=== PATIENT | male | born 1965 | race Two or more races ===

== ENCOUNTER 2017-12-31 20:22 | Emergency (ER) | payer BC, OTHER ==
[~2017-12-31] VITALS: Ht 170.2 cm; Wt 93.0 kg
[2017-12-31] MEDS ORDERED: GENVOYA TABLET1 EACH PO (20:36)
--- NOTE | 2017-12-31 20:46 | Emergency Room Report ---
History of Present Illness General Chief Complaint: Male Urogenital Problems Source: Patient (Yaakov Lopez M.D.) Present Illness HPI 52-year-old male presenting with right inguinal hernia that has been getting bigger and hurting for the last 3 days. States that he has never been this pain before. His last bowel movement was today. He is passing gas. Denies any fever chills. No vomiting. (Yaakov Lopez M.D.) Allergies: Coded Allergies: No Known Allergies (Unverified , 12/31/17) Patient History Past Medical History: see triage record Past Surgical History: none Pertinent Family History: none Reviewed Nursing Documentation: PMH: Agreed; PSxH: Agreed (Yaakov Lopez M.D. ) Nursing Documentation-PMH Hx Gastrointestinal Problems: Yes - HERNIA (Yaakov Lopez M.D.) Review of Systems All Other Systems: negative except mentioned in HPI (Yaakov Lopez M.D.) Physical Exam Vital Signs Date Time Temp Pulse Resp B/P (MAP) Pulse Ox O2 Delivery O2 Flow Rate FiO2 12/31/17 20:27 98.8 90 18 129/78 94 Room Air 98.8 Sp02 EP Interpretation: reviewed, normal General Appearance: alert, GCS 15, non-toxic, moderate distress Head: normocephalic, atraumatic Eyes: bilateral eye normal inspection, bilateral eye PERRL, bilateral eye EOMI ENT: normal ENT inspection, normal pharynx, normal voice, moist mucus membranes Neck: normal inspection, full range of motion, supple Respiratory: normal inspection, lungs clear, normal breath sounds, no respiratory distress, no retraction, no wheezing, speaking full sentences, chest symmetrical Cardiovascular #1: normal inspection, regular rate, rhythm, no edema, normal capillary refill Cardiovascular #2: 2+ radial (R), 2+ radial (L) Gastrointestinal: normal inspection, non tender, soft, non-distended, no guarding Genitourinary: other - Right inguinal hernia that is nonreducible, there is no overlying discoloration, tender to palpation, but not tense Musculoskeletal: normal inspection, back normal, normal range of motion, non- tender Neurologic: normal inspection, alert, oriented x3, responsive, motor strength/ tone normal, sensory intact, normal gait, speech normal Psychiatric: normal inspection, judgement/insight normal, memory normal Skin: normal inspection, normal color, no rash, warm/dry, well hydrated, normal turgor (Yaakov Lopze M.D.) Medical Decision Making Diagnostic Impression: Primary Impression: Incarcerated right inguinal hernia ER Course 52-year-old male with right-sided inguinal hernia DDX: Incarcerated inguinal hernia, not strangulated, no signs of SBO he is passing gas and stool today Plan: Pain control, surgery consult ER course: Patient has remained stable during ED stay. Dr Nelson evaluated pt, able to reduce hernia only by 80% but not fully recommends admission ans possible surgery tomorrow Disposition: Patient is to be admitted [place] [facility] [place] will be ff patient Signed out to Dr Edmonds -52 yo M to be admitted for incarcerated hernia -pending labs and admission Please note that this Emergency Department Report was dictated using The [employer] Rogerscircuit breaker supervisor technology software, occasionally this can lead to erroneous entry secondary to interpretation by the dictation equipment (Yaakov Lopez M.D.) ER Course Patient signout to me. He is pending admission versus transfer. Patient presents with incarcerated hernia and seen by surgeon here. Surgeon recommend urgent surgery and admission. Patient is otherwise stable. I spoke with Dr. Sutton who accepted the patient for transfer to [place]. (ROGELIO EDMONDS M.D.) Last Vital Signs Date Time Temp Pulse Resp B/P (MAP) Pulse Ox O2 Delivery O2 Flow Rate FiO2 12/31/17 20:27 98.8 90 18 129/78 94 Room Air 98.8 (Yaakov Lopez M.D.) Disposition: XFER [facility] Condition: Stable Yaakov Lopez M.D. Dec 31, 2017 20:45 ROGELIO EDMONDS M.D. Dec 31, 2017 22:17
[2017-12-31 20:50] VITALS: BP 129/78
[2017-12-31] MEDS ORDERED: Morphine Sulfate 4mg/ml Inj IV ONE (21:00)
[2017-12-31 21:57] LABS: BASOPHILS % (AUTO) 0.9 % (0.0-2.0); EOSINOPHILS % (AUTO) 2.3 % (0.0-3.0); HEMATOCRIT 43.9 % (42.0-52.0); HEMOGLOBIN 14.4 G/DL (14.2-18.0); LYMPHOCYTES % (AUTO) 35.3 % (20.0-45.0); MEAN CORPUSCULAR VOLUME 91 FL (80-99); NEUTROPHILS % (AUTO) 51.5 % (45.0-75.0); PLATELET COUNT 218 K/UL (150-450); RED CELL DISTRIBUTION WIDTH 11.6 % (11.6-14.8); WHITE BLOOD COUNT 7.1 K/UL (4.8-10.8)
[2017-12-31 22:00] LABS: ANION GAP 8 mmol/L (5-15); BLOOD UREA NITROGEN 15 mg/dL (7-18); CALCIUM 8.6 MG/DL (8.5-10.1); CARBON DIOXIDE 28 MMOL/L (21-32); CHLORIDE 106 MMOL/L (98-107); POTASSIUM 3.8 MMOL/L (3.5-5.1); SODIUM 142 MMOL/L (136-145)
[2017-12-31 22:01] LABS: INR 0.9 (0.9-1.1)
[2017-12-31 22:05] LABS: ALANINE AMINOTRANSFERASE 26 U/L (12-78); ALBUMIN 3.6 G/DL (3.4-5.0); ALBUMIN/GLOBULIN RATIO 0.9 (1.0-2.7); ALKALINE PHOSPHATASE 78 U/L (46-116); ASPARTATE AMINO TRANSFERASE 18 U/L (15-37); BILIRUBIN,TOTAL 0.3 MG/DL (0.2-1.0)
[2017-12-31 22:49] LABS: APPEARANCE,URINE CLEAR; BILIRUBIN, URINE NEGATIVE (NEGATIVE); COLOR,URINE PALE YELLOW; GLUCOSE, URINE (UA) NEGATIVE (NEGATIVE); KETONES,URINE NEGATIVE (NEGATIVE); LEUKOCYTE ESTERASE ,URINE 1+ (NEGATIVE); NITRITE,URINE POSITIVE (NEGATIVE); PH,URINE 6 (4.5-8.0); PROTEIN,URINE 1+ (NEGATIVE); UROBILINOGEN,URINE NORMAL MG/DL (0.0-1.0)
--- NOTE | 2018-01-01 01:26 | Consultation ---
History of Present Illness General Date patient seen: Dec 31, 2017 Chief Complaint: Male Urogenital Problems Reason for Consultation: right inguinal hernia Present Illness HPI late entry for patient seen 12/31 in evening. called to see patient in ED for incarcerated right inguinal hernia. patient states 10 year history of right inguinal hernia. over the past few days worsening pain. went to pcp who recommend patient go to ED given symptoms. states hernia has become larger over past few days and more painful. no n/v/f/c. larger bulge in right groin. tender on palpation. no radiation. no obstructive symptoms. uncomfortable with movement and sitting up. 8/10 sharp pain. Allergies: Coded Allergies: No Known Allergies (Unverified , 12/31/17) Medication History Scheduled Elviteg/Rebekah/Emtric/Tenofo Ala (Genvoya Tablet), 1 EACH PO DAILY, (Reported) Patient History History Provided By: Patient, Friend, Medical Record Healthcare decision maker Resuscitation status Advanced Directive on File Past Medical/Surgical History Past Medical/Surgical History: (1) Right inguinal hernia (2) Incarcerated right inguinal hernia Review of Systems All Other Systems: negative except mentioned in HPI Physical Exam General Appearance: no apparent distress HEENT: normocephalic, atraumatic, mucous membranes moist Neck: normal inspection Respiratory/Chest: normal breath sounds, no respiratory distress, no accessory muscle use Cardiovascular/Chest: normal peripheral pulses, normal rate, regular rhythm Abdomen: non tender, soft, no organomegaly, no mass, hernia Genitourinary/Rectal: other - large right inguinal hernia, tender, firm Extremities: normal range of motion Skin Exam: normal pigmentation Neurologic: alert, oriented x 3 Last 24 Hour Vital Signs Date Time Temp Pulse Resp B/P (MAP) Pulse Ox O2 Delivery O2 Flow Rate FiO2 12/31/17 20:52 98.8 12/31/17 20:50 98.8 90 18 129/78 94 Room Air 98.8 12/31/17 20:27 98.8 90 18 129/78 94 Room Air 98.8 Intake and Output 12/31/17 01/01/18 19:00 07:00 Intake Total 0 ml Balance 0 ml Intake Oral 0 ml Laboratory Tests Test 12/31/17 21:20 12/31/17 22:15 White Blood Count 7.1 K/UL (4.8-10.8) Red Blood Count 4.80 M/UL (4.70-6.10) Hemoglobin 14.4 G/DL (14.2-18.0) Hematocrit 43.9 % (42.0-52.0) Mean Corpuscular Volume 91 FL (80-99) Mean Corpuscular Hemoglobin 29.9 PG (27.0-31.0) Mean Corpuscular Hemoglobin Concent 32.7 G/DL (32.0-36.0) Red Cell Distribution Width 11.6 % (11.6-14.8) Platelet Count 218 K/UL (150-450) Mean Platelet Volume 6.0 FL (6.5-10.1) L Neutrophils (%) (Auto) 51.5 % (45.0-75.0) Lymphocytes (%) (Auto) 35.3 % (20.0-45.0) Monocytes (%) (Auto) 10.0 % (1.0-10.0) Eosinophils (%) (Auto) 2.3 % (0.0-3.0) Basophils (%) (Auto) 0.9 % (0.0-2.0) Prothrombin Time 9.7 SEC (9.30-11.50) Prothromb Time International Ratio 0.9 (0.9-1.1) Activated Partial Thromboplast Time 27 SEC (23-33) Sodium Level 142 MMOL/L (136-145) Potassium Level 3.8 MMOL/L (3.5-5.1) Chloride Level 106 MMOL/L (98-107) Carbon Dioxide Level 28 MMOL/L (21-32) Anion Gap 8 mmol/L (5-15) Blood Urea Nitrogen 15 mg/dL (7-18) Creatinine 1.0 MG/DL (0.55-1.30) Estimat Glomerular Filtration Rate > 60 mL/min (>60) Glucose Level 102 MG/DL (74-106) Calcium Level 8.6 MG/DL (8.5-10.1) Total Bilirubin 0.3 MG/DL (0.2-1.0) Aspartate Amino Transf (AST/SGOT) 18 U/L (15-37) Alanine Aminotransferase (ALT/SGPT) 26 U/L (12-78) Alkaline Phosphatase 78 U/L (46-116) Total Protein 7.7 G/DL (6.4-8.2) Albumin 3.6 G/DL (3.4-5.0) Globulin 4.1 g/dL Albumin/Globulin Ratio 0.9 (1.0-2.7) L Lipase 184 U/L (73-393) Urine Color Pale yellow Urine Appearance Clear Urine pH 6 (4.5-8.0) Urine Specific [place] 1.015 (1.005-1.035) Urine Protein 1+ (NEGATIVE) H Urine Glucose (UA) Negative (NEGATIVE) Urine Ketones Negative (NEGATIVE) Urine Occult Blood 1+ (NEGATIVE) H Urine Nitrite Positive (NEGATIVE) H Urine Bilirubin Negative (NEGATIVE) Urine Urobilinogen Normal MG/DL (0.0-1.0) Urine Leukocyte Esterase 1+ (NEGATIVE) H Urine RBC 2-4 /HPF (0 - 0) H Urine WBC 0-2 /HPF (0 - 0) Urine Squamous Epithelial Cells None /LPF (NONE/OCC) Urine Bacteria Few /HPF (NONE) Height (Feet): 5 Height (Inches): 7.00 Weight (Pounds): 205 Assessment/Plan Problem List: (1) Incarcerated right inguinal hernia Assessment & Plan: 52M incarcerated right inguinal hernia. could only partially reduce in ED. even with partial reduction would return after minimal movement. given time of onset and symptoms recommend admission for monitoring. fortunately not strangulated. given above if not fully reduced by morning, worsening symptoms, or recurrence would recommend operative reduction of bowel contents and hernia repair. thank you for this consultation. will follow ICD Codes: K40.30 - Unilateral inguinal hernia, with obstruction, without gangrene, not specified as recurrent SNOMED: [id number] Alexis Nelson Jan 01, 2018 01:26
[2018-01-01 01:30] VITALS: BP 114/76
== END 2018-01-01 01:36 | disposition short-term general hospital (02) ==
LOC: EMR 21:00
DX: K40.30 Unilateral inguinal hernia, with obstruction, without gangrene, not specified as recurrent (principal)
CPT/HCPCS: 36415; 80053; 81003; 83690; 85025; 85610; 85730; 86850; 86900; 86901; 96360; 96374; 96375; 99285; J2270; J2405